=== PATIENT | male | born 1995 | race Two or more races ===

== ENCOUNTER 2017-12-05 07:17 | Emergency (ER) | payer MEDICAID ==
[~2017-12-05] VITALS: Ht 180.3 cm; Wt 90.7 kg
[2017-12-05 07:22] VITALS: BP 134/80
[2017-12-05 07:40] VITALS: BP 122/80
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
[2017-12-05] MEDS ORDERED: CEPHALEXIN500 MG ORAL (08:48)
[2017-12-05 09:29] VITALS: BP 127/87
== END 2017-12-05 09:32 | disposition home or self-care (01) ==
LOC: EDBD 07:17 → EMR 07:58
DX: T23.002A Burn of unspecified degree of left hand, unspecified site, initial encounter (principal); T79.9XXA Unspecified early complication of trauma, initial encounter; L03.114 Cellulitis of left upper limb
CPT/HCPCS: 99284